=== PATIENT | female | born 1985 | race Caucasian/White ===

== ENCOUNTER 2017-08-03 19:34 | Emergency (ER) | payer OTHER ==
[~2017-08-03] VITALS: Ht 149.9 cm; Wt 48.0 kg
[2017-08-03 19:38] VITALS: BP 104/68; PULSE 96; RESP 18; O2SAT 100
--- NOTE | 2017-08-03 20:45 | ED.REPORT ---
HPI- Female Date of Service Aug 03, 2017 ED Provider: Joseph Dickson MD The patient is a [id number] 11 week 31-year-old female with history of 3 miscarriages all at around 5 weeks who presents to the ED complaining of cramping pelvic pain. The patient woke up this morning with the pain, and it has persisted since. She also admits to vaginal bleeding this morning which has lessened over the course of the day. She denies bleeding any clots or tissue, dysuria, urinary frequency, diarrhea or constipation. Nursing Notes Stated Complaint: 11 WEEKS , BLEEDING Chief Complaint: & Delivery Nursing Notes Reviewed: Yes Allergies: Coded Allergies: No Known Allergies (Unverified , 08/03/17) Scheduled Progesterone,Micronized (Prometrium) 100 Mg Capsule 100 MG PO DAILY General Time Seen by MD: 20:49 Chief Complaint Pelvic pain Hx Obtained From: Patient Arrived By: Walk-in Sudden in Onset?: Yes Onset Occurred: 9 - 12 hours ago Symptom Duration: Since onset Recent Healthcare: No recent hospitalization, Recent doctor visit Similar Sx Previous: Yes Past Medical History Past Medical History [id number] Past Surgical History none reported Smoking History Never Smoker Social History Alcohol Use: Denies alcohol use Other Social History: Good social support Ambulatory Status Independent Review of Systems GI: Denies: Constipation, Diarrhea, Vomiting Female: Reports: Pelvic pain, Vaginal bleeding - abnl, Denies: Dysuria, Urinary frequency, Urinary urgency Musculoskeletal: Denies: Back pain, Neck pain Skin: Denies Rash Complete sys rev & neg: except as marked. Physical Exam Initial Vital Signs Vital Signs (First) Date Time Temp Pulse Resp B/P Pulse Ox O2 Delivery O2 Flow Rate FiO2 08/03/17 19:38 36.8 96 18 104/68 100 Room Air Initial VS: Reviewed Female Genitourinary: Exam deferred General/Constitutional: Awake, Alert Respiratory / Chest: Atraumatic, No respiratory distress Cardiovascular: Heart rate NL Abdomen: Atraumatic, Soft, Non-tender gravid Back: Atraumatic, Full range of motion Skin: Atraumatic, Color NL, No rash, Warm, Dry Head / Eyes: Atraumatic, Normocephalic, PERRL, EOMI ENT: Atraumatic, Airway patent, Mucous membranes moist Neck: Atraumatic, Supple, Full range of motion Upper Extremity / MS: Atraumatic, Full range of motion Lower Extremity / Pelvis / MS: Atraumatic, Full range of motion Neurologic: Oriented X3, Speech NL, No motor deficits, No sensory deficits Psychiatric: Affect NL, Mood NL Interpretation & Diagnostics Interpretation & Diagnostics: 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: small subchorionic hemorrhage 11 week otherwise normal Lab Results Interpretation Result Diagram: 08/03/17 2130 Test 08/03/17 21:30 White Blood Count 8.7th/mm3 (3.8-10.1) Red Blood Count 4.04mil/mm3 (3.90-5.20) Hemoglobin 12.4g/dL (12.0-15.6) Hematocrit 35.7% (35.0-46.0) Mean Corpuscular Volume 88.4fL (81-100) Mean Corpuscular Hemoglobin 30.7pg (27.0-35.0) Mean Corpuscular Hemoglobin Concent 34.7% (32.0-37.0) Red Cell Distribution Width 13.2% (12.3-15.4) Platelet Count 218bil/L (150-400) Neutrophils (%) (Auto) 70.0% (40-74) Lymphocytes (%) (Auto) 23.8% (14-46) Monocytes (%) (Auto) 5.3% (4-12) Eosinophils (%) (Auto) 0.7% (0-5) Basophils (%) (Auto) 0.1% (0-3) [employer] Received (Received) Re-Eval/Medical Decision Med Decision/Clinical Course 31-year-old female with an eleven week , and vaginal bleeding cramping, proves to have a subchorionic hemorrhage on ultrasound. Discussed with her applied technologist who has requested she be started on Prometrium. Dose given here and prescription for thirty tablets, one daily. Discharged in stable condition. Pelvic rest bedrest. Re-Evaluation/Progress : Time of Eval: 21:45 Patient Status: Condition improved Re-Evaluation/Progress Note: Discussed diagnosis and plan for discharge. The patient understands and agrees with plan. All questions addressed at this time. Consultation : Referral / Consult Name: Anita Saul Call Returned at: 20:53 Driller'S Offsider: Agrees with eval, Agrees with plan Note: Consulted with Anita Saul pt's applied technologist, who agrees with the evaluation and plan. Counseled Regarding: Lab results, Need for follow-up, When/why to return to ED Discharge & Departure Impression: Primary Impression: Subchorionic hemorrhage in first trimester Additional Impression: 11 weeks gestation of Disposition: Home Discharge Condition All VS Reviewed: Yes Condition: Stable Patient Instructions: Threatened Miscarriage (ED) Additional Instructions: Begin Prometrium daily for the next thirty days. Follow-up with your doctor in the office. They will have access to a progesterone level once it becomes available. Bed rest for the next week. Pelvic rest. No heavy physical activity. Return if heavy bleeding or cramping persist. Referrals: (Family) Anita Saul (PCP) Scribe Attestation Portions of this note were transcribed by Lemuel Feliz and Clif Grover. I, Dr. Dickson personally performed the history, physical exam and medical decision-making; I reviewed and confirmed the accuracy of the information in the transcribed note. copies to: Anita Hanson LM; Anita Saul Christopher W MD Aug 03, 2017 20:45 Lemuel Feliz Aug 03, 2017 21:07 CLIF GROVER Aug 03, 2017 23:24
[2017-08-03] MEDS ORDERED: PROG100C3 PO (21:00)
[2017-08-03] MEDS: Progesterone 100 mg Micronized Capsule PO ONE ×2 (21:12→21:34)
[2017-08-03 21:51] LABS: Mean Corpuscular Hemoglobin 30.7 pg (27.0-35.0); Mean Corpuscular Volume 88.4 fL (81-100); Platelet Count 218 bil/L (150-400)
[2017-08-03 21:52] LABS: BASOPHILS % (AUTO) 0.1 % (0-3); EOSINOPHILS % (AUTO) 0.7 % (0-5); MONOCYTES % (AUTO) 5.3 % (4-12)
[2017-08-03 22:10] VITALS: BP_SYST 98; PULSE 92; O2SAT 99
--- NOTE | 2017-08-04 08:22 | DRSVH ---
PROCEDURE: US OB<14 WKS+OB TRANSVAG INDICATIONS: 31 year-old female with vaginal bleeding. OUTSIDE/PRIOR DATING DATA: Last menstrual period (LMP): Not known. LMP-based estimated date of delivery (HA): Not known. First dating scan (date and location): Present study. Estimated date of delivery (HA) from first dating scan: February 18, 2018. TECHNIQUE: Real-time scanning was performed of the fetus and maternal pelvic organs, with image documentation. Endovaginal scanning was also performed to better visualize the fetus and maternal ovaries. COMPARISON: None. FINDINGS: Embryo: Single living intrauterine gestation demonstrates normal heart rate of 176 beats per mi nute. [place]-rump length of 4.8 cm corresponds with 11 weeks 4 days estimated gestational age. Amnioti c fluid is qualitatively normal in amount. Perigestational sac bleed measures 3.6 x 1.9 cm. Measurement variability in dating: +/- 4 weeks by LMP, +/- 7 days by mean sac diameter (use before 6 weeks gestation if crown-rump length not able to be measured), +/- 5 days by crown-rump length (up t o 8 weeks 6 days gestation), +/- 7 days by crown-rump length (up to 13 weeks 6 days gestation). Maternal organs: Ovaries are normal in size bilaterally. Limited images through the kidneys demonst rate no hydronephrosis. IMPRESSION: 1. Single living intrauterine gestation, with ultrasound derived estimated gestational age of 11 week s 4 days, +/-7 days. With the same measurement variability, ultrasound derived estimated date of deli very is February 18, 2018. 2. Perigestational sac bleed measures up to 3.6 cm. Dictated by: Ayan Connors M.D. on 08/04/2017 at 8:15 Approved by: Ayan Connors M.D. on 08/04/2017 at 8:20
== END 2017-08-03 21:59 | disposition home or self-care (01) ==
LOC: SED 19:34
DX: O41.8X11 Other specified disorders of amniotic fluid and membranes, first trimester, fetus 1 (principal); Z3A.11 11 weeks gestation of pregnancy
CPT/HCPCS: 36415; 76801; 84144; 85025; 99284; J2675